=== PATIENT | female | born 1940 | race African-American/Black ===

== ENCOUNTER 2017-07-02 12:49 | Inpatient (IN) | payer OTHER, MEDICAID ==
[~2017-07-02] VITALS: Ht 325.1 cm; Wt 69.9 kg
[~2017-07-02 12:49] MED LIST: ATOR20TA65 PO; GLIP5TAB12 PO; HYDR-2510 PO; LISI40TA4 PO; PRED5TAB48 PO
[2017-07-02] MEDS ORDERED: SODIUM CHLORIDE 0.9% 1,000 ML IV ONE (14:31)
[2017-07-02 15:00] LABS: EOSINOPHILS % 2.1 % (0.0-5.0); HEMATOCRIT. 35.9 % (36.0-48.0); HEMOGLOBIN. 12.4 g/dL (12.0-16.0); LYMPHOCYTES % 24.7 % (20.0-50.0); MEAN CORPUSCULAR HEMOGLOBIN 32.9 pg (28.0-32.0); MONOCYTES % 10.5 % (2.0-8.0); NEUTROPHILS % 61.7 % (40.0-76.0); PLATELET 153 x1000/uL (130-400); RED BLOOD CELL COUNT 3.78 mill/uL (4.2-5.4); RED CELL DISTRIBUTION WIDTH 13.1 % (11.6-14.6)
[2017-07-02 15:04] LABS: CHLORIDE 102 mEq/L (98-107)
[2017-07-02 15:09] LABS: CARBON DIOXIDE 33 mEq/L (21-32)
[2017-07-02 15:39] LABS: CLARITY URINE CLEAR (CLEAR); COLOR URINE YELLOW (YELLOW); GLUCOSE URINE 1+ (NEGATIVE); KETONES URINE 1+ (NEGATIVE); LEUKOCYTE ESTERASE URINE 1+ (NEGATIVE); NITRITE URINE NEGATIVE (NEGATIVE); OCCULT BLOOD URINE NEGATIVE (NEGATIVE); PROTEIN URINE TRACE (NEGATIVE); UROBILINOGEN URINE 0.2 E.U./dL (0.2-1.0)
[2017-07-02] MEDS ORDERED: METRONIDAZOLE 500 MG PREMIX 100 ML IV ONE (16:45)
[2017-07-02] MEDS ORDERED: LEVOFLOXACIN 750MG PREMIX 150 ML IV ONE (16:45)
[2017-07-02] MEDS ORDERED: ONDANSETRON HCL 4MG/2ML VIAL IV PRN (17:45)
[2017-07-02] MEDS ORDERED: NITROGLYCERIN 0.4MG TABLET SL SL PRN (17:45)
[2017-07-02] MEDS ORDERED: IPRATROPIUM/ALBUTEROL 0.5-3(2.5)MG/3ML NEB INH PRN (17:45)
[2017-07-02] MEDS ORDERED: CLONIDINE 0.1MG TABLET PO PRN (17:45)
[2017-07-02] MEDS ORDERED: ACETAMINOPHEN 325MG TABLET PO PRN (17:45)
[2017-07-02] MEDS ORDERED: MAGNESIUM/ALUMINUM HYDROXIDE/SIMETHICONE 30ML UDC PO PRN (17:45)
[2017-07-02] MEDS ORDERED: DIPHENHYDRAMINE 50MG/ML VIAL IV PRN (17:45)
[2017-07-02] MEDS ORDERED: NA PHOS,M-B/NA PHOS,DI-BA ENEMA 118ML PR PRN (17:45)
[2017-07-02] MEDS ORDERED: GUAIFENESIN 200MG/10ML SUGAR FREE UDC PO PRN (17:45)
[2017-07-02] MEDS ORDERED: MORPHINE SULFATE 4 MG/ML CPJ (NOT FOR IM USE) IV PRN (17:45)
[2017-07-02] MEDS ORDERED: DOCUSATE SODIUM 100MG CAPSULE PO PRN (17:45)
[2017-07-02] MEDS ORDERED: LORAZEPAM 2MG/ML CPJ IV PRN (17:45)
[2017-07-02] MEDS ORDERED: TRAMADOL 50MG TABLET PO PRN (17:45)
[2017-07-02] MEDS ORDERED: DEXTROSE 50% WATER 50ML SYRINGE IV PRN (18:00)
[2017-07-02 20:45] VITALS: BP 153/74
[2017-07-02 21:00] VITALS: BP 153/74
[2017-07-02] MEDS ORDERED: FAMOTIDINE 20MG/2ML VIAL IV SCH (21:00)
[2017-07-02] MEDS ORDERED: ZOLPIDEM TARTRATE 5MG TABLET PO PRN (21:00)
[2017-07-02] MEDS ORDERED: ENOXAPARIN 40MG/0.4ML SYR SUBCUT SCH (21:00)
[2017-07-02] MEDS ORDERED: ATORVASTATIN CALCIUM 10MG TABLET PO SCH (21:00)
[2017-07-02] MEDS: LISINOPRIL 20MG TABLET PO SCH (21:35)
[2017-07-02] MEDS: BLOOD SUGAR DIAGNOSTIC STRIP TEST SCH (21:54)
[2017-07-02] MEDS: METRONIDAZOLE 500 MG PREMIX 100 ML IV SCH (22:38)
[2017-07-02] MEDS: HYDRALAZINE HCL 50MG TABLET PO SCH (22:38)
[2017-07-02] MEDS: INSULIN LISPRO 100 UNITS/ML SUBCUT SCH (22:47)
[2017-07-03] VITALS: BP 166/79
[2017-07-03 04:00] VITALS: BP 136/68
[2017-07-03] MEDS: METRONIDAZOLE 500 MG PREMIX 100 ML IV SCH ×2 (06:01→14:00)
[2017-07-03] MEDS: HYDRALAZINE HCL 50MG TABLET PO SCH ×2 (06:02→14:00)
[2017-07-03] MEDS: BLOOD SUGAR DIAGNOSTIC STRIP TEST SCH ×2 (06:21→12:20)
[2017-07-03 08:00] VITALS: BP 109/50
[2017-07-03] MEDS: LISINOPRIL 20MG TABLET PO SCH (09:00)
[2017-07-03] MEDS: INSULIN LISPRO 100 UNITS/ML SUBCUT SCH ×2 (09:29→13:34)
[2017-07-03 12:50] VITALS: BP 109/50
[2017-07-03] MEDS ORDERED: LEVOFLOXACIN 250MG PREMIX 50 ML IV SCH (14:00)
== END 2017-07-03 16:20 | disposition home or self-care (01) | DRG 392 ==
LOC: ER 13:01 → 6EST 16:57 → SUPCPDRO 17:18 → CANRESERV 18:13 → ENRESERV 18:13
PROVIDERS: ADMIT Internal Medicine; ATTEND Internal Medicine
DX: K52.9 Noninfective gastroenteritis and colitis, unspecified (principal); E11.65 Type 2 diabetes mellitus with hyperglycemia; N39.0 Urinary tract infection, site not specified; I10 Essential (primary) hypertension; E78.00 Pure hypercholesterolemia, unspecified; Z79.899 Other long term (current) drug therapy
CPT/HCPCS: 36415; 71010; 80048; 80061; 81001; 82962; 83036; 85025; 87015; 87045; 87427; 87449; 87493; 93005; 93970; 96361; 96365; 96368; 99285; A6261; J1650; J1815; J1956; J3490; J7030; J7050